=== PATIENT | female | born 1935 | race Asian ===

== ENCOUNTER → 2017-05-01 | Outpatient (CLI) | payer MEDICARE | END | disposition home or self-care (01) | LOC: RADMN 12:15 | PROVIDERS: ATTEND Psychiatry & Neurology Neurology | DX: M19.012 Primary osteoarthritis, left shoulder (principal); M85.812 Other specified disorders of bone density and structure, left shoulder; I67.82 Cerebral ischemia; R90.82 White matter disease, unspecified; J32.8 Other chronic sinusitis | CPT/HCPCS: 70551 ==